=== PATIENT | female | born 1985 | race Caucasian/White ===

== ENCOUNTER 2020-07-08 06:12 | Day surgery (SDC) | payer MEDICAID ==
[2020-07-07 09:42] LABS: BASOPHILS % (AUTO) 1 % (0-1); EOSINOPHILS % (AUTO) 2 % (1-7); LYMPHOCYTES % (AUTO) 18 % (22-44); MEAN CORPUSCULAR HGB CONC 32.3 g/dL (32.4-35.8); MEAN PLATELET VOLUME 10.1 fL (7.4-10.4); MONOCYTES % (AUTO) 6 % (2-9); NEUTROPHILS % (AUTO) 74 % (42-75); PLATELET COUNT 258 x10^3/uL (130-400); RED BLOOD COUNT 4.92 x10^6/uL (3.82-5.3); RED CELL DISTRIBUTION WIDTH 14.7 % (9.6-15.2)
[2020-07-07 09:44] LABS: MD NO
[2020-07-07 09:49] LABS: ALBUMIN 3.7 g/dL (3.4-5.0); ANION GAP 3 mmol/L (5-15); CALCIUM 8.6 mg/dL (8.5-10.1); CHLORIDE 106 mmol/L (98-107); CREATININE 0.58 mg/dL (0.55-1.02)
[2020-07-07 09:54] LABS: ALANINE AMINOTRANSFERASE 22 U/L (12-78); ALKALINE PHOSPHATASE 48 U/L (45-117); BILIRUBIN,TOTAL 0.3 mg/dL (0.2-1.0)
[~2020-07-08] VITALS: Ht 157.5 cm; Wt 89.9 kg
[~2020-07-08 06:12] MED LIST: APPLE CIDER VINEGAR PO; BUPIVACAINE/PF 0.5% ONE; ERGO500017 PO; HYDROCHLOROTH12.5 MG PO; IRON18TA PO; LIDOCAINE 1%, 20ML ONE; MAGN296S67 PO; PHEN30CA3 PO; PSYL660P18 PO
[2020-07-08 07:15] VITALS: BP 138/82
[2020-07-08] MEDS ORDERED: CHLORHEXIDINE 15 ML UDC ONE (07:17)
[2020-07-08] MEDS ORDERED: CHLORHEXIDINE 15 ML UDC PO ONE (07:30)
[2020-07-08] MEDS ORDERED: LACTATED RINGERS 1,000 ML IV SCH (07:30)
[2020-07-08] MEDS ORDERED: MIDAZOLAM 1 MG/ML, 2ML ONE (07:37)
[2020-07-08] MEDS ORDERED: FENTANYL PF 100 MCG/2ML ONE (07:37)
[2020-07-08 07:52] LABS: HCG UR SG 1.025 (1.003-1.030)
[2020-07-08] MEDS ORDERED: ONDANSETRON 2MG/ML, 2ML ONE (07:58)
[2020-07-08] MEDS ORDERED: CEFAZOLIN 1,000 MG ONE (07:58)
[2020-07-08] MEDS ORDERED: PROPOFOL 50 ML ONE (08:14)
[2020-07-08] MEDS ORDERED: OXYcodone 5 MG/5 ML ORAL.SOL UDC PO PRN (08:30)
[2020-07-08] MEDS ORDERED: MEPERIDINE/PF 25MG/0.5ML IVPush PRN (08:30)
[2020-07-08] MEDS ORDERED: ACETAMINOPHEN 325 MG TABLET PO PRN (08:30)
[2020-07-08] MEDS ORDERED: LABETALOL 5MG/ML, 20ML IV PRN (08:30)
[2020-07-08] MEDS ORDERED: FENTANYL PF 100 MCG/2ML IV PRN (08:30)
[2020-07-08] MEDS ORDERED: ONDANSETRON 2MG/ML, 2ML IVPush PRN (08:30)
[2020-07-08] MEDS ORDERED: LORazepam 2 MG/ML, 1ML IVPush PRN (08:30)
[2020-07-08] MEDS ORDERED: METHOCARBAMOL 1,000 MG in DEXTROSE 5% 100 ML IV PRN (08:30)
[2020-07-08] MEDS ORDERED: HYDROmorphone 1 MG/ML, 1ML INJ IVPush PRN (08:30)
[2020-07-08] MEDS ORDERED: hydrALAzine 20 MG/ML, 1ML IV PRN (08:30)
[2020-07-08] MEDS ORDERED: EPHEDRINE 50 MG/ML, 1ML IVPush PRN (08:30)
[2020-07-08] MEDS ORDERED: PROMETHAZINE 25 MG/ML, 1ML IVPush PRN (08:30)
== END 2020-07-08 11:25 | disposition home or self-care (01) ==
LOC: OUT 06:12
PROVIDERS: ATTEND Orthopaedic Surgery
DX: D17.21 Benign lipomatous neoplasm of skin and subcutaneous tissue of right arm (principal); M65.821 Other synovitis and tenosynovitis, right upper arm; I10 Essential (primary) hypertension; D64.9 Anemia, unspecified; Z20.822 Contact with and (suspected) exposure to COVID-19; Z87.891 Personal history of nicotine dependence
CPT/HCPCS: 25071; 36415; 80053; 81025; 85025; 88304; J0690; J2250; J2405; J2704; J3010; J7120; U0003